=== PATIENT | female | born 2000 | race Caucasian/White ===

== ENCOUNTER 2021-04-07 13:02 | Emergency (ER) | payer SELFPAY ==
[~2021-04-07] VITALS: Ht 160 cm; Wt 59.5 kg
[2021-04-07 13:34] VITALS: BP 117/80
[2021-04-07] MEDS ORDERED: HAL5 PO (14:44)
[2021-04-07] MEDS ORDERED: TRAZ-343 PO (14:44)
[2021-04-07 14:53] VITALS: BP 117/80
--- NOTE | 2021-04-07 14:53 | NUR ---
NO NURSING INTERVENTIONS COMPLETED FOR PATIENT
--- NOTE | 2021-04-07 14:53 | NUR ---
Patient discharged with v/s stable. Written and verbal after care instructions given and explained. Patient alert, oriented and verbalized understanding of instructions. Ambulatory with steady gait. All questions addressed prior to discharge. ID band removed. Patient advised to follow up with PMD. Rx of HALDOL, TRAZADONE given. Patient educated on indication of medication including possible reaction and side effects. Opportunity to ask questions provided and answered.
== END 2021-04-07 14:53 | disposition home or self-care (01) ==
LOC: MED 13:02
DX: Z76.0 Encounter for issue of repeat prescription (principal)
CPT/HCPCS: 99281

== ENCOUNTER 2021-09-17 11:02 | Emergency (ER) | payer MEDICAID ==
[~2021-09-17] VITALS: Ht 160 cm; Wt 49.9 kg
[~2021-09-17 11:02] MED LIST: HAL5 PO; TRAZ-343 PO
--- NOTE | 2021-09-17 11:05 | NUR ---
PT AMBULATED TO ER BED 8 WITH A STEADY GAIT.
[2021-09-17 11:09] VITALS: BP 110/63
--- NOTE | 2021-09-17 11:29 | NUR ---
21 Y/O FEMALE C/O RIGHT FOOT PAIN. PER PATIENT "SHE WAS WALKING IN HEELS X2 WEEKS AGO WHEN SHE TWISTED HER ANKLE AND SOMETHING FELL ON IT." NO SWELLING NOTED AND PT GAIT STEADY. DENIES FEVER/CHILLS. DENIES N/V. DENIES PMH NKA
[2021-09-17] MEDS ORDERED: ACET-10509 PO (11:33)
--- NOTE | 2021-09-17 11:58 | NUR ---
Patient discharged with INFOMRATION FOR FOOT PAIN v/s stable. Written and verbal after care instructions given and explained. Patient alert, oriented and verbalized understanding of instructions. Ambulatory with steady gait. All questions addressed prior to discharge. ID band removed. Patient advised to follow up with PMD. Rx of ACETAMINOPHEN given. Patient educated on indication of medication including possible reaction and side effects. Opportunity to ask questions provided and answered.
[2021-09-17 12:00] VITALS: BP 110/63
--- NOTE | 2021-09-17 12:27 | NUR ---
The patient's care was reviewed and supervised by Maria Teresa Bullock RN.
== END 2021-09-17 12:00 | disposition home or self-care (01) ==
LOC: MED 11:02
DX: M79.671 Pain in right foot (principal); Z79.899 Other long term (current) drug therapy
CPT/HCPCS: 99282